=== PATIENT | female | born 1990 | race Caucasian/White ===

== ENCOUNTER → 2022-07-01 | Outpatient (CLI) | payer BC ==
[2022-07-01 19:31] LABS: Basophils # (A) 0.03 X 10*3/uL (0.00-0.10); Basophils % (A) 0.4 %; Eosinophils # (A) 0.04 X 10*3/uL (0.04-0.35); Eosinophils % (A) 0.5 %; HCT 41.4 % (37.2-46.3); HGB 13.4 g/dL (12.0-15.0); Immature Grans, Automated 0.5 %; Lymphocytes # (A) 2.13 X 10*3/uL (0.90-5.00); Lymphocytes % (A) 24.9 %; MCH 28.7 pg (27.0-32.0); MCHC 32.4 g/dL (32.0-37.0); MCV 88.7 fL (80.0-97.0); Mean Platelet Volume 11.4 fL (9.5-12.2); Monocytes # (A) 0.54 X 10*3/uL (0.20-1.00); Monocytes % (A) 6.3 %; NRBC Per 100 WBC 0 /100 WBCS (0.0-0.0); Neutrophils # (A) 5.78 X 10*3/uL (1.80-7.70); Neutrophils % (A) 67.4 %; Platelet Count 246 X 10*3/uL (140-440); RBC 4.67 X 10*6/uL (4.10-5.20); RDW 13.2 % (11.5-14.5); WBC 8.56 X 10*3/uL (4.50-10.00)
[2022-07-02 02:36] LABS: ALT 18 U/L (8-44); AST 14 U/L (13-35); African American GFR (CKD) 105.9 (60.0-200.0); Albumin 4.5 g/dL (3.8-4.9); Alkaline Phosphatase 82 U/L (41-126); BUN/Creat Ratio 10.78 Ratio (12.00-20.00); Calcium 9.8 mg/dL (8.7-10.3); Carbon Dioxide 27.1 mmol/L (20.0-27.5); Chloride 103 mmol/L (96-109); Chol/HDL Ratio 2.75 Ratio; Globulin 2.8 g/dL (1.6-3.3); Glucose 87 mg/dL (70-110); LDL Cholesterol,Calculated 89.6 mg/dL (0.0-131.0); Non-African American GFR(CKD) 91.3 (60.0-200.0); Sodium 141 mmol/L (135-145); Total Protein 7.3 g/dL (6.2-8.2); VLDL Calculation 14.18 mg/dL (5.00-40.00)
== END | disposition home or self-care (01) ==
LOC: LABWHC1 09:58
PROVIDERS: ATTEND Family Medicine
DX: Z11.59 Encounter for screening for other viral diseases (principal); R00.2 Palpitations
CPT/HCPCS: 36415; 80053; 80061; 84439; 84443; 85025; 86803

== ENCOUNTER → 2022-07-09 | Outpatient (CLI) | payer BC ==
--- NOTE | 2022-08-16 09:44 | EM ---
EVENT MONITOR A 30-day event monitor. INDICATIONS FOR STUDY: Rule out cardiac arrhythmia. FINDINGS: The patient was monitored for 30 days. The baseline rhythm appeared to be sinus mechanism with sinus tachycardia. No significant sinus bradycardia noted. No significant sinus pause or sinus arrest. No evidence of any atrial fibrillation or atrial flutter. CONCLUSION: 1. This is a 30 days event monitor. 2. The baseline rhythm appeared to be sinus mechanism. 3. Multiple episodes of sinus tachycardia. MMODL / IJN: [id number] /
== END | disposition home or self-care (01) ==
LOC: RADECHMAIN 08:12
PROVIDERS: ATTEND Family Medicine
DX: R00.0 Tachycardia, unspecified (principal); R00.2 Palpitations
CPT/HCPCS: 93270

== ENCOUNTER → 2022-08-09 | Outpatient (CLI) | payer BC ==
--- NOTE | 2022-08-09 12:33 | CA ---
Transthoracic Echo Report Name: Janell Lowery Age: 32 Gender: F : 1990 Exam Date: 08/09/2022 09:45 Exam Location: [place] [facility] Ht (in): 66 Wt (lb): 208 Ordering Physician: Ke Rodríguez MD Attending/Referring Phys: [id number], Marcos Cnc Field Service Engineer Yany Denis, [facility] Procedure CPT: Indications: R94.31 ABNORMAL EKG Cardiac Hx: Technical Quality: Good Contrast 1: Total Dose (mL): 81 Contrast 2: Total Dose (mL): MEASUREMENTS (Male / Female) Normal Values 2D ECHO LV Diastolic Diameter PLAX 4.2 cm 4.2 - 5.9 / 3.9 - 5.3 cm LV Systolic Diameter PLAX 2.7 cm IVS Diastolic Thickness 1.1 cm 0.6 - 1.0 / 0.6 - 0.9 cm LVPW Diastolic Thickness 0.9 cm 0.6 - 1.0 / 0.6 - 0.9 cm LV Relative Wall Thickness 0.5 RV Internal Dim ED PLAX 3.1 cm LA Systolic Diameter LX 3.3 cm 3.0 - 4.0 / 2.7 - 3.8 cm LA Volume 33.1 cm??? 18 - 58 / 22 - 52 cm??? M-MODE Aortic Root Diameter MM 3.1 cm MV E Point Septal Separation 0.5 cm AV Cusp Separation MM 2.5 cm DOPPLER AV Peak Velocity 102.5 cm/s AV Peak Gradient 4.2 mmHg MV Area PHT 3.1 cm??? Mitral E Point Velocity 76.6 cm/s Mitral A Point Velocity 59.4 cm/s Mitral E to A Ratio 1.3 MV Deceleration Time 243.1 ms FINDINGS Left Ventricle Left ventricular ejection fraction is estimated at 55-60 %. Left ventricular cavity size normal. Mildly increased septal wall thickness. Right Ventricle Normal right ventricular size and function. Unable to estimate the right ventricular systolic pressure. Right Atrium Normal right atrial size. Left Atrium Normal left atrial size. Mitral Valve Structurally normal mitral valve. No mitral stenosis, regurgitation or prolapse. Aortic Valve Trileaflet aortic valve. No aortic valve stenosis or regurgitation. Tricuspid Valve Structurally normal tricuspid valve. No tricuspid regurgitation. Pulmonic Valve Structurally normal pulmonic valve. Trace to mild pulmonic regurgitation. Pericardium Normal pericardium. No pericardial effusion. Aorta Normal size aortic root and proximal ascending aorta. CONCLUSIONS Normal LV systolic function No significant valvular abnormalities seen Previewed by: Dr. Hector Fonseca MD (Electronically Signed) Final Date: 09 August 2022 12:32
--- NOTE | 2022-08-09 12:47 | CA ---
Stress Echo Report Janell Lowery Age: 32 Gender: F : 1990 Exam Date: 08/09/2022 09:24 Exam Location: [place] [facility] Ht (in): 66 Wt (lb): 208 Ordering Physician: Ke Rodríguez MD Referring Physician: Marcos INFANTE Electric Melt Operator: DALE Technologist Procedure CPT: Indication: R94.31 ABNORMAL EKG ICD-9 Codes: Rhythm: Patient History: CHEST PAIN, PALPITATIONS, FAMILY HX OF HEART DISEASE Cardiac Medications: NONE,,,,, Medications in past 24 hours: Contrast: Stress Results Protocol: Diego Total dose(mL): Exercise Duration (min:sec): 10:[address] Depression (mm): Angina Score: Castillo Score: METS: 11.7 Resting HR: 88 Resting BP: 108 / 76 Peak HR: 163 Peak BP: 173 / 65 Max Predicted HR: 186 88 % Max Predicted HR Target HR: 158 Double Product: [id number] Stress Summary: BP Response: Reason for Termination: MAX EXERTION/TARGET HR Cardiac Symptoms: NO SYMPTOMS ECG Analysis Resting ECG: Stress ECG: Arrhythmia: Echo Analysis Resting Echo: Peak Echo Analysis: MEASUREMENTS (Male/Female) Normal Values CONCLUSIONS Excellent exercise tolerance Normal EKG and echo in response to exercise Dr. Hector Fonseca MD (Electronically Signed) Final Date: 09 August 2022 12:46
== END | disposition home or self-care (01) ==
LOC: RADECHMAIN 08:24
PROVIDERS: ATTEND Family Medicine
DX: I37.1 Nonrheumatic pulmonary valve insufficiency (principal); R94.31 Abnormal electrocardiogram [ECG] [EKG]; R07.9 Chest pain, unspecified; R00.2 Palpitations; Z82.49 Family history of ischemic heart disease and other diseases of the circulatory system
CPT/HCPCS: 93306; 93351